=== PATIENT | female | born 1960 | race Caucasian/White ===

== ENCOUNTER 2016-12-14 11:18 | Emergency (ER) | payer SELFPAY ==
[2016-12-14 13:10] VITALS: BP 128/79
--- NOTE | 2016-12-14 13:18 | UC ---
Minor Trauma HPI - HPI Summary HPI Summary: Fell on safety mat at work 12/08/16. Sustained bruise on R thigh, has had worsening pain in back up to neck. Having numbness and pain down R leg. - History of Current Complaint Chief Complaint: UCBackPain Stated Complaint: LEG AND BACK INJURY Time Seen by Provider: 12/14/16 12:58 Hx Obtained From: Patient Hx Last Menstrual Period: 07/11/14 ?: No Onset/Duration: Sudden Onset Onset Of Pain: Immediate Severity Initially: Moderate Severity Currently: Severe Mechanism Of Injury: Fall From A Standing Position Aggravating Factor(s): Ambulation Associated Signs And Symptoms: Positive: Ecchymosis - Allergies/Home Medications Allergies/Adverse Reactions: Allergies Allergy/AdvReac Type Severity Reaction Status Date / Time Naproxen AdvReac Vomiting Verified 12/14/16 12:14 Home Medications: Home Medications Acetaminophen 2 tab PO PRN 12/14/16 [History] PMH/Surg Hx/FS Hx/Imm Hx Previously Healthy: Yes Endocrine History Of: Denies: Diabetes, Thyroid Disease Cardiovascular History Of: Denies: Cardiac Disorders, Hypertension Respiratory History Of: Denies: COPD, Asthma GI/ History Of: Denies: Ulcer - Surgical History Surgical History: Yes Surgery Procedure, Year, and Place: Left foot surgery - Family History Known Family History: Negative: Diabetes - Social History Occupation: Employed Full-time Alcohol Use: Rare Substance Use Type: None Smoking Status (MU): Never Smoked Tobacco Review of Systems Constitutional: Negative Skin: Bruising Eyes: Negative ENT: Negative Respiratory: Negative Cardiovascular: Negative Gastrointestinal: Negative Genitourinary: Negative Motor: Negative Neurovascular: Negative Musculoskeletal: Arthralgia Neurological: Negative Psychological: Negative All Other Systems Reviewed And Are Negative: Yes Physical Exam Triage Information Reviewed: Yes Appearance: Well-Appearing, No Pain Distress, Obese Vital Signs: Initial Vital Signs Temp 98.0 F 12/14/16 12:17 Pulse 57 12/14/16 12:17 Resp 16 12/14/16 12:17 BP 135/64 12/14/16 12:17 Pulse Ox 98 12/14/16 12:17 Vital Signs Reviewed: Yes Eye Exam: Normal Eyes: Positive: Conjunctiva Clear ENT Exam: Normal ENT: Positive: Normal ENT inspection, Hearing grossly normal, Pharynx normal, TMs normal Dental Exam: Normal Neck exam: Other - no bony tenderness Neck: Positive: Supple, No Lymphadenopathy Respiratory Exam: Normal Respiratory: Positive: Chest non-tender, Lungs clear, Normal breath sounds, No respiratory distress, No accessory muscle use Cardiovascular Exam: Normal Cardiovascular: Positive: RRR, No Murmur Musculoskeletal Exam: Other - pain in paraspinal muscles in mid and upper back, more diffuse LBP without tenderness Musculoskeletal: Positive: Strength Intact, ROM Intact, No Edema Neurological Exam: Normal, Other - DTRs 2+ BLE Neurological: Positive: Alert Psychological Exam: Normal Skin Exam: Normal Minor Trauma Course/Dx - Differential Dx/Diagnosis Provider Diagnoses: cervical strain. low back strain. lumbar radiculopathy Discharge - Discharge Plan Condition: Stable Disposition: HOME Prescriptions: Cyclobenzaprine TAB* [Flexeril TAB*] 10 mg PO TID PRN #30 tab PRN Reason: Pain Ketorolac TAB (NF) [Toradol TAB (NF)] 10 mg PO TID #20 tab Patient Education Materials: Cervical Strain (ED), Acute Low Back Pain (ED), Lumbar Radiculopathy (ED) Forms: *Work Release Referrals: Ani Aquino MD [Primary Care Provider] - Additional Instructions: As we discussed, you need to follow up with Dr. Aquino in 2-4 weeks about the lesion found in your left pelvis on CT scan. This is not related to your injury. For the back and leg pain, take the toradol, use the cyclobenzaprine as needed for pain (don't use it before going to work or driving as it can cause sleepiness), and soak in your hot tub 2-3 times per day. If your pain worsens, if you can't return to work on Tuesday, or if you are not improving, please return here for a recheck.
[2016-12-14] MEDS ORDERED: Cyclobenzaprine TAB* 10 MG PO ONE (13:43)
[2016-12-14] MEDS ORDERED: Ketorolac INJ* 30 MG/ML 1 ML VIAL IM ONE (13:43)
--- NOTE | 2016-12-14 13:53 | RAD ---
Indication: Right leg pain and numbness after back injury. CT of the lumbar spine was obtained in the axial plane. Sagittal and coronal reconstructed images were obtained. The vertebral bodies appear normal in height. No evidence of compression fracture is noted. In the left iliac wing there is a focal lytic lesion of uncertain etiology. Correlation with medical history is suggested. Bone scan may BE performed for further evaluation. At L4-L5 mild facet arthropathy is noted. Minimal broad-based protrusion is noted. At L3-L4 there is degenerative disc disease with minimal broad-based protrusion. Mild facet arthropathy is noted. At L2-L3 and L1-L2 no focal protrusion is noted. No fracture of the lumbar spine is noted. IMPRESSION: No fracture is identified. Focal lytic lesion in the left ilium is noted of uncertain etiology. Correlation with bone scan may BE helpful.
== END 2016-12-14 14:08 | disposition home or self-care (01) ==
LOC: UCEAST 11:18
DX: S16.1XXA Strain of muscle, fascia and tendon at neck level, initial encounter (principal); S39.012A Strain of muscle, fascia and tendon of lower back, initial encounter; W19.XXXA Unspecified fall, initial encounter; Y93.9 Activity, unspecified; Y92.89 Other specified places as the place of occurrence of the external cause; Y99.0 Civilian activity done for income or pay; M54.16 Radiculopathy, lumbar region; S70.11XA Contusion of right thigh, initial encounter; Z88.6 Allergy status to analgesic agent
CPT/HCPCS: 72131; 96372; 99212; A9270-GY; G0463; J1885

== ENCOUNTER 2017-12-13 09:57 | Emergency (ER) | payer OTHER ==
--- NOTE | 2017-12-13 11:23 | UC ---
Throat Pain/Nasal Harrison HPI - HPI Summary HPI Summary: Pt presents 1.5 weeks ago with bodyaches, fatigue, dry cough, and sinus pain/ pressure/congestion. Her bodyaches and headaches have still mildly persisted, but her sinus pain/pressure/congestion seems to getting worse. Denies fever, SOB , chest pain, abdominal pain, n/v/d/c. - History of Current Complaint Stated Complaint: HEADACHE COUGH SORE THROAT Time Seen by Provider: 12/13/17 11:22 Hx Obtained From: Patient Hx Last Menstrual Period: 07/11/14 Onset/Duration: Gradual Onset Severity: Mild Pain Intensity: 4 Pain Scale Used: 0-10 Numeric - Allergies/Home Medications Allergies/Adverse Reactions: Allergies Allergy/AdvReac Type Severity Reaction Status Date / Time naproxen AdvReac Vomiting Verified 12/13/17 11:46 Home Medications: Home Medications guaiFENesin [Mucinex] 600 mg PO BID PRN 12/13/17 [History Confirmed 12/13/17] PMH/Surg Hx/FS Hx/Imm Hx Previously Healthy: Yes GI/ History: Gastroesophageal Reflux Psychological History: Anxiety, Depression - Surgical History Surgical History: Yes Surgery Procedure, Year, and Place: Left foot surgery - Family History Known Family History: Negative: Diabetes - Social History Occupation: Employed Full-time Lives: With Family Alcohol Use: Rare Substance Use Type: None Smoking Status (MU): Never Smoked Tobacco Review of Systems Constitutional: Fatigue, Other - Bodyaches Skin: Negative Eyes: Negative ENT: Nasal Discharge, Sinus Congestion, Sinus Pain/Tenderness Respiratory: Cough Cardiovascular: Negative Gastrointestinal: Negative Musculoskeletal: Negative Neurological: Negative Psychological: Negative All Other Systems Reviewed And Are Negative: Yes Physical Exam Triage Information Reviewed: Yes Appearance: Well-Nourished, Ill-Appearing Vital Signs Reviewed: Yes Eyes: Positive: Conjunctiva Clear. Negative: Conjunctiva Inflamed, Discharge ENT: Positive: Hearing grossly normal, Pharynx normal, Nasal congestion, Nasal drainage, TMs normal, Sinus tenderness, Uvula midline. Negative: Pharyngeal erythema, TM bulging, TM dull, TM red, Tonsillar swelling, Tonsillar exudate, Hoarse voice Neck: Positive: Supple, Nontender, No Lymphadenopathy Respiratory: Positive: Chest non-tender, Lungs clear, Normal breath sounds, No respiratory distress, No accessory muscle use Cardiovascular: Positive: RRR, No Murmur, Pulses Normal Neurological: Positive: Alert Psychological: Positive: Age Appropriate Behavior Skin: Negative: rashes Throat Pain/Nasal Course/Dx - Course Course Of Treatment: Sinusitis. Bronchitis - Differential Dx/Diagnosis Provider Diagnoses: Sinusitis. Bronchitis Discharge - Discharge Plan Condition: Stable Disposition: HOME Prescriptions: Amoxicillin PO (*) [Amoxicillin 500 MG CAP*] 500 mg PO Q12H #14 cap Benzonatate CAP* [Tessalon 100 MG CAP*] 100 mg PO TID PRN #21 cap PRN Reason: Cough guaiFENesin/CODIEN 100MG-10MG* [Robitussin AC 100Mg-10Mg*] 5 ml PO BEDTIME PRN # 35 ml MDD 5mL PRN Reason: Cough Patient Education Materials: Sinusitis (ED), Acute Bronchitis (ED) Forms: *Work Release Referrals: Ani Aquino MD [Primary Care Provider] - Additional Instructions: If you develop a fever, shortness of breath, chest pain, new or worsening symptoms - please call your PCP or go to the ED. 1) May take the Tessalon throughout the day as needed, up to three times a day. 2) Can try the cough syrup about a half hour before bedtime to help you sleep without the cough. 3) Tylenol OTC or Ibuprofen OTC as needed for fever or general discomfort.
[2017-12-13 11:25] VITALS: BP 122/70
== END 2017-12-13 11:55 | disposition home or self-care (01) ==
LOC: UCEAST 09:57
DX: J32.9 Chronic sinusitis, unspecified (principal); J40 Bronchitis, not specified as acute or chronic; K21.9 Gastro-esophageal reflux disease without esophagitis; F41.9 Anxiety disorder, unspecified; F32.9 Major depressive disorder, single episode, unspecified; Z88.6 Allergy status to analgesic agent
CPT/HCPCS: 99211; G0463

== ENCOUNTER 2017-12-16 08:41 | Emergency (ER) | payer OTHER ==
[2017-12-16 08:52] VITALS: BP 126/77
--- NOTE | 2017-12-16 10:22 | UC ---
Respiratory Complaint HPI - HPI Summary HPI Summary: 10 days of nasal and sinus congestion still not getting better-now has a sensation of movement "in her ears" - History of Current Complaint Chief Complaint: UCGeneralIllness Stated Complaint: RESP ISSUE Time Seen by Provider: 12/16/17 10:15 Hx Obtained From: Patient Hx Last Menstrual Period: 07/11/14 ?: No Onset/Duration: Gradual Onset, Lasting Days - 10, Still Present Timing: Constant Severity Initially: Moderate Severity Currently: Moderate Pain Intensity: 5 Pain Scale Used: 0-10 Numeric Aggravating Factors: Nothing Alleviating Factors: Nothing Associated Signs And Symptoms: Positive: Chills, URI, Nasal Congestion, Sinus Discomfort - Allergies/Home Medications Allergies/Adverse Reactions: Allergies Allergy/AdvReac Type Severity Reaction Status Date / Time naproxen AdvReac Vomiting Verified 12/16/17 08:52 PMH/Surg Hx/FS Hx/Imm Hx Previously Healthy: Yes GI/ History: Gastroesophageal Reflux Psychological History: Depression - Surgical History Surgical History: Yes Surgery Procedure, Year, and Place: Left foot surgery - Family History Known Family History: Negative: Diabetes - Social History Occupation: Employed Full-time Lives: With Family Alcohol Use: Rare Substance Use Type: None Smoking Status (MU): Former Smoker Review of Systems Constitutional: Chills, Fatigue Skin: Negative Eyes: Negative ENT: Nasal Discharge, Sinus Congestion, Sinus Pain/Tenderness Respiratory: Negative Cardiovascular: Negative Gastrointestinal: Negative Genitourinary: Negative Motor: Negative Neurovascular: Negative Musculoskeletal: Negative Neurological: Headache Psychological: Negative Is Patient Immunocompromised?: No All Other Systems Reviewed And Are Negative: Yes Physical Exam Triage Information Reviewed: Yes Appearance: Well-Appearing, No Pain Distress, Well-Nourished Vital Signs: Initial Vital Signs Temp 97.6 F 12/16/17 08:48 Pulse 59 12/16/17 08:48 Resp 16 12/16/17 08:48 BP 126/77 12/16/17 08:48 Pulse Ox 100 12/16/17 08:48 Vital Signs Reviewed: Yes Eye Exam: Normal Eyes: Positive: Conjunctiva Clear ENT Exam: Normal ENT: Positive: Normal ENT inspection, Hearing grossly normal, Pharynx normal, Nasal congestion, Nasal drainage, TMs normal, Sinus tenderness, Uvula midline. Negative: Tonsillar swelling, Tonsillar exudate, Trismus, Muffled voice, Hoarse voice, Dental tenderness Dental Exam: Normal Neck exam: Normal Neck: Positive: Supple, Nontender, No Lymphadenopathy Respiratory Exam: Normal Respiratory: Positive: Chest non-tender, Lungs clear, Normal breath sounds, No respiratory distress, No accessory muscle use Cardiovascular Exam: Normal Cardiovascular: Positive: RRR, No Murmur, Pulses Normal, Brisk Capillary Refill Musculoskeletal Exam: Normal Musculoskeletal: Positive: Strength Intact, ROM Intact, No Edema Neurological Exam: Normal Neurological: Positive: Alert, Muscle Tone Normal Psychological Exam: Normal Skin Exam: Normal UC Diagnostic Evaluation - Laboratory O2 Sat by Pulse Oximetry: 100 Respiratory Course/Dx - Course Course Of Treatment: Add sudafed and flonase, increase fluids to assist the mucinex in managing secreations, follow with pcp prn - Differential Dx/Diagnosis Provider Diagnoses: Rhinosinusitis Discharge - Discharge Plan Condition: Stable Disposition: HOME Prescriptions: Fluticasone NASAL SPRAY 50MCG* [Flonase NASAL SPRAY 50MCG*] 2 spray BOTH NARES DAILY #1 btl Patient Education Materials: Pseudoephedrine (By mouth), Vertigo (ED), Rhinosinusitis (ED) Forms: *Work Release Referrals: Ani Aquino MD [Primary Care Provider] - If Needed
== END 2017-12-16 10:25 | disposition home or self-care (01) ==
LOC: UCEAST 08:41
DX: J32.9 Chronic sinusitis, unspecified (principal); K21.9 Gastro-esophageal reflux disease without esophagitis; F32.9 Major depressive disorder, single episode, unspecified; Z88.6 Allergy status to analgesic agent; Z87.891 Personal history of nicotine dependence
CPT/HCPCS: 99212; G0463

== ENCOUNTER 2018-09-17 11:40 | Emergency (ER) | payer OTHER ==
--- OUTSIDE RECORDS SUMMARY | 2018-09-17 11:45 | XMS REPORT | Continuity of Care Document ---
:1960 External Reference #:[id number] Author Name Cristo Chang MD Address [address] [place] [address] Care Team Providers Name Role Phone Susan Zuniga Audiology Care Team Information Peanut Roaster Unavailable Ani Aquino M.D. 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 Unknown Pack Daily Quit at age 51. Tobacco Use Start: Unknown Never Smoked Cigars Tobacco Use Start: Unknown Never Smoked A Pipe Smoking Status Reviewed: 08/24/18 Never Smoked A Pipe Smokeless Tobacco Never Used Smokeless Tobacco ETOH Use Currently Consumes Alcohol Tobacco Use Start: Unknown End: Patient is a former Unknown smoker Allergies, Adverse Reactions, Alerts Description No Known Drug Allergies Medications Medication Date Status Form Strength Qnty SIG Indications Ordering Provider Fluticasone 09/08/ Active Suspension 50mcg/Act 16gm 2 sprays Cristo Propionate 2017 each Semaj Chang nostril daily Valium 08/24/ Active Tablets 5mg 2tabs 1 tablet Cristo 2018 by mouth Semaj Chang 60 min prior to mri and then 5 min prior to mri if anxiety persists Meclizine HCL / Active Tablets 25mg take 1 Unknown 0000 tablet by mouth three times a day if needed for dizziness / Vertigo Citalopram / Active Tablets 20mg Unknown Hydrobromide 0000 Zyrtec Allergy / Active Tablets 10mg 1 by mouth Unknown 0000 every day Claritin / Active Tablets 10mg 1 by mouth Unknown 0000 every day Omeprazole / Active Capsules DR 20mg as Unknown 0000 directed Immunizations Description No Information Available Vital Signs Date Vital Result Comment 08/24/2018 10:52am Weight 209.00 lb Weight 94.802 kg Height 64.5 inches 5'4.50" Height in cm's 163.8 cm BMI (Body Mass Index) 35.3 kg/m2 Results Description No Information Available Procedures Date Code Description Status 08/24/2018 73874 Tympanometry Completed 08/24/2018 41677 Comprehensive Audiogram Completed Encounters Type Date Location Provider Dx Diagnosis Office Visit 09/08/2018 Violetta,Claudia Cha H93.12 Tinnitus, left ear 10:15a 11/07/07 MD Charlene H81.399 Other peripheral vertigo, unspecified ear Office Visit 08/24/2018 10:45a Violetta,Claudia 11/07/07 Cristo Cha H93.12 Tinnitus, left MD Charlene ear H81.399 Other peripheral vertigo, unspecified ear Plan of Treatment No Information Available
--- OUTSIDE RECORDS SUMMARY | 2018-09-17 11:45 | XMS REPORT | Continuity of Care Document ---
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 Primary Care Physician Unavailable Payers Type Date Identification Numbers Payment Provider Subscriber Effective: Policy Number: [id number] [employer] Insurance walkby Monique Yates 2018 Group Number: [id number] [address] Group Name: [id number] [address] [place] [address] PayID: [id number] Advance Directives Description No Information Available Problems Description No Information Family History Date Family Member(s) Problem(s) Comments General Diabetes Father Allergies Father Asthma Father Cancer Mother Hearing Loss Mother Cancer Social History Type Date Description Comments Sex Unknown 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 Tobacco Use Start: Unknown End: Former Cigarette [...] Form Strength Qnty SIG Indications Ordering Provider Valium 08/24/ Active Tablets 5mg 2tabs 1 tablet by Cristo Savage mouth 60 Semaj Chang, min prior MD to mri and then 5 min prior [...] 0000 every day Omeprazole / Active Capsules 20mg as directed Unknown 0000 DR Immunizations Description No Information Available Vital Signs Date Vital Result Comment 08/24/2018 10:52am Weight 209.00 lb Weight 94.802 kg Height 64.5 inches 5'4.50" Height in cm's 163.8 cm BMI (Body Mass Index) 35.3 kg/m2 Results Description No Information Available Procedures Date Code Description Status 08/24/2018 94844 Tympanometry Completed 08/24/2018 08447 Comprehensive Audiogram Completed Encounters Type Date Location Provider Dx Diagnosis Office Visit 08/24/2018 [place],After Cristo Cha H93.12 Tinnitus, left ear 10:45a 11/07/07 MD Charlene H81.399 Other peripheral vertigo, unspecified ear Plan of Treatment Future Appointment(s):09/08/2018 10:15 am - Cristo Chang MD at [place], After 11/07/809 - Cristo Chang MDH93.12 Tinnitus, left earH81.399 Other peripheral vertigo, unspecified ear
[2018-09-17 11:56] VITALS: BP 115/71
--- NOTE | 2018-09-17 12:48 | UC ---
Respiratory Complaint HPI - HPI Summary HPI Summary: cough, nasal drainage, sore throat headaches and body aches for 3 days---has not had flu vaccine yet---quit smoking 10 years ago---no specific illness exposures but works in [employer] - History of Current Complaint Chief Complaint: UCRespiratory Stated Complaint: COUGH SORE THROAT RESP ISSUE Time Seen by Provider: 09/17/18 12:41 Hx Obtained From: Patient Hx Last Menstrual Period: 07/11/14 ?: No Onset/Duration: Gradual Onset, Lasting Days - 3, Still Present Timing: Constant Pain Intensity: 6 Pain Scale Used: 0-10 Numeric Character: Cough: Nonproductive Aggravating Factors: Nothing Alleviating Factors: Nothing Associated Signs And Symptoms: Positive: URI, Nasal Congestion - Allergies/Home Medications Allergies/Adverse Reactions: Allergies Allergy/AdvReac Type Severity Reaction Status Date / Time naproxen AdvReac Vomiting Verified 09/17/18 11:56 PMH/Surg Hx/FS Hx/Imm Hx Previously Healthy: No GI/ History: Gastroesophageal Reflux Psychological History: Depression - Surgical History Surgical History: Yes Surgery Procedure, Year, and Place: Left foot surgery - Family History Known Family History: Negative: Diabetes - Social History Occupation: Employed Full-time Lives: With Family Alcohol Use: Rare Substance Use Type: None Smoking Status (MU): Former Smoker Review of Systems All Other Systems Reviewed And Are Negative: Yes Constitutional: Positive: Chills, Fatigue Skin: Positive: Negative Eyes: Positive: Negative ENT: Positive: Sore Throat, Nasal Discharge, Sinus Congestion Respiratory: Positive: Cough Cardiovascular: Positive: Negative Gastrointestinal: Positive: Negative Genitourinary: Positive: Negative Motor: Positive: Negative Neurovascular: Positive: Negative Musculoskeletal: Positive: Negative Neurological: Positive: Negative Psychological: Positive: Negative Is Patient Immunocompromised?: No Physical Exam Triage Information Reviewed: Yes Appearance: No Pain Distress, Well-Nourished, Ill-Appearing - mild, Pain Distress Vital Signs: Initial Vital Signs Temp 98 F 09/17/18 11:53 Pulse 67 09/17/18 11:53 Resp 16 09/17/18 11:53 BP 115/71 09/17/18 11:53 Pulse Ox 100 09/17/18 11:53 Vital Signs Reviewed: Yes Eye Exam: Normal Eyes: Positive: Conjunctiva Clear ENT Exam: Normal ENT: Positive: Normal ENT inspection, Hearing grossly normal, Pharynx normal, Nasal congestion, Nasal drainage, TMs normal, Uvula midline. Negative: Tonsillar swelling, Trismus, Muffled voice, Hoarse voice, Dental tenderness, Sinus tenderness Dental Exam: Normal Neck exam: Normal Neck: Positive: Supple, Nontender Respiratory Exam: Normal Respiratory: Positive: Chest non-tender, Lungs clear, Normal breath sounds, No respiratory distress, No accessory muscle use Cardiovascular Exam: Normal Cardiovascular: Positive: RRR, No Murmur, Pulses Normal, Brisk Capillary Refill Musculoskeletal Exam: Normal Musculoskeletal: Positive: Strength Intact, ROM Intact, No Edema Neurological Exam: Normal Neurological: Positive: Alert, Muscle Tone Normal Psychological Exam: Normal Skin Exam: Normal UC Diagnostic Evaluation - Laboratory O2 Sat by Pulse Oximetry: 100 Respiratory Course/Dx - Course Course Of Treatment: rest increase fluids, tylenol, ibuprofen for pain albuterol , tessalon, robitussin for cough, follow with pcp as needed - Differential Dx/Diagnosis Provider Diagnoses: URI Discharge - Sign-Out/Discharge Documenting (check all that apply): Patient Departure All imaging exams completed and their final reports reviewed: No Studies - Discharge Plan Condition: Stable Disposition: HOME Prescriptions: Albuterol HFA INHALER* [Ventolin HFA Inhaler*] 2 puff INH Q4H PRN #1 mdi PRN Reason: cough Benzonatate CAP* [Tessalon 100 MG CAP*] 100 - 200 mg PO TID PRN #40 cap PRN Reason: Cough Fluticasone NASAL SPRAY 50MCG* [Flonase NASAL SPRAY 50MCG*] 2 spray BOTH NARES DAILY #1 btl guaiFENesin/CODIEN 100MG-10MG* [Robitussin AC 100Mg-10Mg*] 10 ml PO Q4H PRN #90 ml MDD 40 PRN Reason: cough predniSONE [Prednisone 20 MG TAB] 40 mg PO DAILY 4 Days #8 tablet Patient Education Materials: Upper Respiratory Infection (ED) Forms: *Work Release Referrals: Ani Aquino MD [Primary Care Provider] - 1 Week - Billing Disposition and Condition Condition: STABLE Disposition: Home
== END 2018-09-17 13:07 | disposition home or self-care (01) ==
LOC: UCEAST 11:40
DX: J06.9 Acute upper respiratory infection, unspecified (principal); Z88.8 Allergy status to other drugs, medicaments and biological substances; Z87.891 Personal history of nicotine dependence
CPT/HCPCS: 99212; G0463